=== PATIENT | female | born 1995 | race Caucasian/White ===

== ENCOUNTER 2017-12-11 12:53 | Emergency (ER) | payer MEDICAID ==
[~2017-12-11] VITALS: Ht 165.1 cm; Wt 58.5 kg
[2017-12-11 12:59] VITALS: BP 107/75
[2017-12-11] MEDS ORDERED: AMOX-100 PO (13:45)
[2017-12-11] MEDS ORDERED: acetaminophen w/codeine (30MG) #3 tablet PO ONE (13:50)
== END 2017-12-11 14:25 | disposition home or self-care (01) ==
LOC: ER 12:55
DX: J02.9 Acute pharyngitis, unspecified (principal); Z79.2 Long term (current) use of antibiotics
CPT/HCPCS: 99283